=== PATIENT | male | born 1960 | race Caucasian/White ===

== ENCOUNTER 2016-12-03 16:04 | Emergency (ER) | payer MEDICAID ==
[~2016-12-03] VITALS: Ht 165.1 cm; Wt 95.3 kg
[~2016-12-03 16:04] MED LIST: ASPIRIN81 M1 PO; FLOMAX0.4 MG PO; MOTRIN800 MG PO; SIMVASTATIN40 M1 PO
[2016-12-03 16:22] VITALS: BP 146/95
[2016-12-03] MEDS ORDERED: TENORMIN100 MG PO (16:26)
--- NOTE | 2016-12-03 19:00 | NUR ---
56 YO MALE BIB FAMILY C/O PIAN R JOSE ROBERTO, RECTAL BLEEDING X 2 DAYS. PT DENIES N/V/D; SKIN IS PINK/WARM/DRY; AAOX4 WITH EVEN AND STEADY GAIT; LUNGS CLEAR BL; HR EVEN AND REGULAR; PT DENIES ANY FEVER, CP, SOB, OR COUGH AT THIS TIME; PATIENT STATES PAIN OF 4/10 AT THIS TIME; VSS; PATIENT POSITIONED FOR COMFORT; HOB ELEVATED; BEDRAILS UP X2; BED DOWN. ER MD MADE AWARE OF PT STATUS.
--- NOTE | 2016-12-03 19:16 | NUR ---
GOT REPORT FROM ELVIS GILLESPIE. PATIENT RESTING IN BED, NO S/SX OF DISTRESS.
--- NOTE | 2016-12-03 19:18 | NUR ---
Pt report given to MONIKA LEAL. Transfer of care at this time.
--- NOTE | 2016-12-03 19:24 | NUR ---
Dr. Chaudhary evaluating patient at bedside.
[2016-12-03] MEDS ORDERED: NACL 0.9% 500 ML IV ONE (19:50)
--- NOTE | 2016-12-03 20:41 | NUR ---
TAKE PT. TO X-RAY
--- NOTE | 2016-12-03 20:52 | NUR ---
PATIENT BACK FROM X-RAY
--- NOTE | 2016-12-03 21:05 | NUR ---
Patient discharged with v/s stable. Written and verbal after care instructions given and explained. Patient alert, oriented and verbalized understanding of instructions. Ambulatory with steady gait. All questions addressed prior to discharge. ID band removed. Patient advised to follow up with PMD. Rx of MOTRIN 600 MG, LACTULOSE 10 MG/15ML, HYDROCORTISONE 25 MG RECTAL SUPPOSITORY given. Patient educated on indication of medication including possible reaction and side effects. Opportunity to ask questions provided and answered.
[2016-12-03 21:06] VITALS: BP 150/85
== END 2016-12-03 21:05 | disposition home or self-care (01) ==
LOC: MED 16:04
DX: K64.4 Residual hemorrhoidal skin tags (principal); K59.00 Constipation, unspecified; J02.9 Acute pharyngitis, unspecified; E11.9 Type 2 diabetes mellitus without complications; I10 Essential (primary) hypertension; Z88.5 Allergy status to narcotic agent; Z88.8 Allergy status to other drugs, medicaments and biological substances; Z79.82 Long term (current) use of aspirin
CPT/HCPCS: 36415; 74022; 80053; 85025; 85610; 85730; 96360; 99285; J7030

== ENCOUNTER 2018-12-20 10:55 | Emergency (ER) | payer MEDICAID ==
[~2018-12-20] VITALS: Ht 165.1 cm; Wt 96.2 kg
[~2018-12-20 10:55] MED LIST changes: +ASPI-1718 PO; -ASPIRIN81 M1 PO; +ATEN100T6 PO; -FLOMAX0.4 MG PO; +IBUP-974 PO; -MOTRIN800 MG PO; -SIMVASTATIN40 M1 PO; +TAMS0.4C96 PO
[2018-12-20 11:01] VITALS: BP 182/99
--- NOTE | 2018-12-20 11:03 | NUR ---
Aylin aburto in [facility] - 12/20/18 at 1106 by [email or web address] pt ambulated to bed 7, report to Trey LEAL
--- NOTE | 2018-12-20 11:03 | NUR ---
Pt ambulated to bed 3, report to Trey LEAL.
--- NOTE | 2018-12-20 11:13 | NUR ---
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 DENIES N/V/D; SKIN IS PINK/WARM/DRY; AAOX4 WITH EVEN AND STEADY GAIT; LUNGS CLEAR BL; HR EVEN AND REGULAR; PATIENT STATES PAIN OF 9/10 AT THIS TIME; VSS; PATIENT POSITIONED FOR COMFORT; HOB ELEVATED; BEDRAILS UP X2; BED DOWN. ER MD MADE AWARE OF PT STATUS.
[2018-12-20] MEDS ORDERED: KETOROLAC 60 MG/2 ML VIAL IM ONE (11:15)
--- NOTE | 2018-12-20 13:08 | NUR ---
Patient discharged with v/s stable. Written and verbal after care instructions given and explained. Patient alert, oriented and verbalized understanding of instructions. Ambulatory with steady gait. All questions addressed prior to discharge. ID band removed. Patient advised to follow up with PMD. Rx of ATENOLOL/NORCO/SIMVASTATIN given. Patient educated on indication of medication including possible reaction and side effects. Opportunity to ask questions provided and answered.
[2018-12-20 13:10] VITALS: BP 169/87
== END 2018-12-20 13:08 | disposition home or self-care (01) ==
LOC: MED 10:55
DX: R51 Headache (principal); I10 Essential (primary) hypertension; Z79.82 Long term (current) use of aspirin; Z88.5 Allergy status to narcotic agent; Z79.899 Other long term (current) drug therapy; Z88.8 Allergy status to other drugs, medicaments and biological substances
CPT/HCPCS: 96372; 99283; J1885

== ENCOUNTER 2019-04-25 19:36 | Emergency (ER) | payer MEDICAID ==
[~2019-04-25] VITALS: Ht 162.6 cm; Wt 81.6 kg
[2019-04-25 19:38] VITALS: BP 168/100
--- NOTE | 2019-04-25 19:38 | NUR ---
TO BED # 08 AMBULATORY
--- NOTE | 2019-04-25 19:56 | NUR ---
PT C/O OF SHORTNESS OF BREATHE SINCE TODAY. LUNGS SOUNDS ARE CLEAR BILATERALLY. RESPIRATIONS EVEN AND UNLABORED. O2 SATURATION AT 98% AT THIS TIME. PT HAS HEADACHE, PAIN LEVEL 5/10. PT STATED "I HAVE BEEN DEALING WITH ALOT OF STRESS LATELY." MED HX: HTN, HYPERLIPIDEMIA, AND ENLARGED PROSTATE. SAFETY MEASURES IN PLACE. WAITING FOR ERMD TO EVALUATE PT.
--- NOTE | 2019-04-25 20:00 | NUR ---
PT RESTING IN BED, EYES OPEN. VSS. WILL CONTINUE TO MONITOR.
[2019-04-25] MEDS ORDERED: KETOROLAC 60 MG/2 ML VIAL IM ONE (20:20)
[2019-04-25] MEDS ORDERED: DEXAMETHASONE 10 MG/ML VIAL PO ONE (20:20)
--- NOTE | 2019-04-25 21:18 | NUR ---
PT STATES "I AM FEELING A LITTLE BETTER." VSS. WILL CONTINUE TO MONITOR.
[2019-04-25] MEDS ORDERED: ALBUTEROL SULFATE/IPRATROPIU 3 ML SOL IH ONE (21:30)
--- NOTE | 2019-04-25 21:34 | NUR ---
Respiratory Therapist at bedside for respiratory intervention
--- NOTE | 2019-04-25 22:12 | NUR ---
Dr. Leiva examining patient.
[2019-04-25 22:15] VITALS: BP 154/80
--- NOTE | 2019-04-25 22:15 | NUR ---
Note [email or web address] in EDM - 04/25/19 at 2223 by EDER Patient discharged with v/s stable. Pt states "he feels much better." Written and verbal after care instructions given and explained. Patient alert, oriented and verbalized understanding of instructions. Ambulatory with steady gait. All questions addressed prior to discharge. ID band removed. Patient advised to follow up with PMD. Rx of SIMVISTATIN, ATENOLOL WAS given. Patient educated on indication of medication including possible reaction and side effects. Opportunity to ask questions provided and answered.
--- NOTE | 2019-04-25 22:15 | NUR ---
Patient discharged with v/s stable. Pt states "he feels much better." Written and verbal after care instructions given and explained. Patient alert, oriented and verbalized understanding of instructions. Ambulatory with steady gait. All questions addressed prior to discharge. ID band removed. Patient advised to follow up with PMD. Rx of SIMVISTATIN, ATENOLOL, azithromycin, and WAS given. Patient educated on indication of medication including possible reaction and side effects. Opportunity to ask questions provided and answered.
== END 2019-04-25 22:15 | disposition home or self-care (01) ==
LOC: MED 19:36
DX: J20.9 Acute bronchitis, unspecified (principal); I10 Essential (primary) hypertension; Z76.0 Encounter for issue of repeat prescription; E78.5 Hyperlipidemia, unspecified; Z98.890 Other specified postprocedural states; Z88.5 Allergy status to narcotic agent; Z88.8 Allergy status to other drugs, medicaments and biological substances; Z79.82 Long term (current) use of aspirin; Z79.899 Other long term (current) drug therapy
CPT/HCPCS: 71045; 94640; 96372; 99283; J1100; J1885; J7620; Q0092